=== PATIENT | female | born 1940 | race Caucasian/White ===

== ENCOUNTER 2018-01-15 20:14 | Inpatient (IN) ==
--- NOTE | 2018-01-15 21:10 | XR ---
EXAM DATE: 01/15/2018 9:05 PM EST AGE/SEX: 77 years / Female INDICATIONS: Syncopal episode. CLINICAL DATA: This is the patient's initial encounter. Patient reports that signs and symptoms have been present for 1 day and indicates a pain score of 0/10. MEDICAL/SURGICAL HISTORY: Carcinoma, lung. Hypertension. Diabetes. COPD. . Lung biopsy. COMPARISON: No prior exams available for comparison. FINDINGS: Mild volume loss and mild atelectasis seen on the right. No pleural effusion or pneumothorax on eithe r side. Heart size within normal limits. CONCLUSION: I don't have any pertinent priors. There is mild volume loss and mild atelectasis on the right. The v olume loss may be postoperative. Left lung is clear. Normal heart size. Electronically signed by: Manish Diaz MD 01/15/2018 9:09 PM EST
--- NOTE | 2018-01-15 21:16 | ED ---
HPI General Chief Complaint: Respiratory Symptoms Stated Complaint: Medical Time Seen by Provider: 01/15/18 20:26 Source: patient and EMS Mode of arrival: EMS Limitations: no limitations History of Present Illness 77 yo F arrives due to low O2 sat, evidently in the 80s today. Pt c/o chronic cough. No cp. No dyspnea on exertion or orthopnea to reports. Denies subjective fevers. Pt reports hx lung Ca and is currently undergoing RTX. No CTX. Oncologist is Dr Kelly. Pt reports COPD hx however does not require albuterol inhaler or nebs at home. Duration of hypoxia reportedly 1 day. Related Data Home Medications Medication Instructions Recorded Confirmed aripiprazole 2 mg PO DAILY 01/15/18 01/15/18 aspirin [Aspir-81] 81 mg PO DAILY 01/15/18 01/15/18 docusate sodium [Colace] 100 mg PO BID 01/15/18 01/15/18 escitalopram oxalate 15 mg PO DAILY 01/15/18 01/15/18 furosemide 20 mg PO BID 01/15/18 01/15/18 levothyroxine [Synthroid] 150 mcg PO DAILY 01/15/18 01/15/18 lorazepam 0.5 mg PO DAILY 01/15/18 01/15/18 magnesium oxide 400 mg PO DAILY 01/15/18 01/15/18 metformin 1,000 mg PO BID 01/15/18 01/15/18 oxybutynin chloride 5 mg PO DAILY 01/15/18 01/15/18 potassium chloride 10 meq PO DAILY 01/15/18 01/15/18 pregabalin 150 mg PO BID 01/15/18 01/15/18 ropinirole 1 mg PO HS 01/15/18 01/15/18 Allergies Allergy/AdvReac Type Severity Reaction Status Date / Time codeine Allergy Severe Unverified 10/06/16 22:46 Iodinated Contrast- Oral and Allergy Severe Swelling Unverified 10/06/16 22:46 IV Dye Review of Systems ROS: all other systems reviewed are negative [facility] Medical History Medical History Atherosclerosis (Acute) COPD (chronic obstructive pulmonary disease) (Acute) Diabetes (Acute) HTN (hypertension) (Acute) Hyperlipidemia (Acute) Hypothyroid (Acute) Lung cancer (Acute) Neuropathy (Acute) Social History Social History Substance History: No History of Abuse Smoking Status: Current every day smoker Tobacco Type: Cigarettes How Often Do You Have a Drink Containing Alcohol: Never Recent Travel in [facility] within the Last 8 Weeks: No Recent Out of Country Travel within the Last 8 Weeks: No Immunization History Tetanus Immunization: <5 Years Exam Narrative Exam Narrative: GENERAL: 77 yo F, WNWD, pleasant, speaking sentences, AOX3 SKIN: Focused skin assessment warm/dry. HEAD: Atraumatic. Normocephalic. EYES: Pupils equal and round. No scleral icterus. No injection or drainage. ENT: No nasal bleeding or discharge. Mucous membranes pink and moist. NECK: Trachea midline. No JVD. CARDIOVASCULAR: Regular rate and rhythm. No murmur appreciated. RESPIRATORY: Lungs clear. RR approx 18. GASTROINTESTINAL: Abdomen soft, non-tender, nondistended. Hepatic and splenic margins not palpable. MUSCULOSKELETAL: No obvious deformities. No clubbing. No cyanosis. No edema. NEUROLOGICAL: Awake and alert. No obvious cranial nerve deficits. Motor grossly within normal limits. Normal speech. PSYCHIATRIC: Appropriate mood and affect; insight and judgment normal. Course Initial Documented Vital Signs Pulse Rate 81 01/15/18 20:23 Blood Pressure 116/74 01/15/18 20:23 Pulse Oximetry 98 01/15/18 20:23 Last Documented Vital Signs Temperature 97.9 F 01/15/18 21:22 Pulse Rate 79 01/15/18 20:34 Respiratory Rate 20 01/15/18 20:34 Blood Pressure 116/74 01/15/18 20:34 Pulse Oximetry 97 01/15/18 21:23 Critical Care Time Critical Care Time: Yes Total Critical Care Time: 33 Attestation: Aggregate critical care time was 33 minutes. Time to perform other separately billable procedures was not included in the critical care time. My time did not include minutes spent treating any other patients simultaneously or on activities that did not directly contribute to the patient's treatment. The services I provided to this patient were to treat and/or prevent clinically significant deterioration that could result in: hypoxia, septic shock I provided critical care services requiring my management, as noted below: Chart data review, documentation time, medication orders and management, vital sign assessments/reviewing monitor data, ordering and reviewing lab tests, ordering and interpreting/reviewing x-rays and diagnostic studies, care of the patient and discussion of the patient with the admitting physicians. Medical Decision Making MDM Narrative Medical decision making narrative: Oxygenation here has been in the high 90s on [place]. ABG shows 7.34/42/22 pO2 of 84mmHg on [place]. WBC 13.8 w 87% neutrophils BUN 33 Cr 1.53 Tn < 0.02 BNP 80 CXR: interpreted as volume loss by Dr Diaz. Call placed to [facility] at 1124 with plan for admission. Blood cultures, Rocephin/azithromycin O2 sat drops to 89% on RA, stays in mid90s on NC d/w Dr Brown for [facility] Dr Eastman is away on vacation Medical Screen Exam Complete: Yes Emergency Medical Condition: Yes Lab Data Lab results reviewed: Yes I reviewed the patient's lab results. Result diagrams: 01/15/18 22:30 01/15/18 22:30 Lab Results 01/15/18 01/15/18 01/15/18 Range/Units 22:09 22:30 22:30 WBC 13.8 H (4.0-11.0) th/mm3 RBC 4.33 (4.00-5.30) mil/mm3 Hgb 11.1 L (11.6-15.3) gm/dL Hct 34.7 L (35.0-46.0) % MCV 80.1 (80.0-100.0) fL MCH 25.6 L (27.0-34.0) pg MCHC 32.0 (32.0-36.0) % RDW 19.4 H (11.6-17.2) % Plt Count 188 (150-450) th/mm3 MPV 8.1 (7.0-11.0) fL Neut % (Auto) 87.2 H (16.0-70.0) % Lymph % (Auto) 5.4 L (9.0-44.0) % [place] % (Auto) 7.0 (0.0-8.0) % Eos % (Auto) 0.2 (0.0-4.0) % Baso % (Auto) 0.2 (0.0-2.0) % Neut # (Auto) 12.0 H (1.8-7.7) th/mm3 Lymph # (Auto) 0.7 L (1.0-4.8) th/mm3 [place] # (Auto) 1.0 H (0.0-0.9) th/mm3 Eos # (Auto) 0.0 (0.0-0.4) th/mm3 Baso # (Auto) 0.0 (0.0-0.2) th/mm3 WBC Differential . Differential Comment Auto diff final Puncture Site Right radial Patient Temperature 98.6 O2 Saturation 93 (90-100) % ABG pH 7.35 L (7.380-7.420) ABG pCO2 42 (38-42) mmHg ABG pO2 84 (61-120) mmHg ABG HCO3 22 (22-26) mmol/L ABG O2 Content 14.4 (12.0-20.0) Vol % ABG Base Excess -2.4 L (-2-2) mmol/L ABG Methemoglobin 0.9 (0-2) % Calderon Test Present Hemoglobin 11.0 L (12.0-16.0) G/DL Carboxyhemoglobin 2.1 (0-4) % O2 Delivery Device Nasal cannula Liter Flow 2.00 L/M Critical Value No Sodium 143 (136-145) meq/L Potassium 4.0 (3.5-5.1) meq/L Chloride 109 H (98-107) meq/L Carbon Dioxide 25.3 (21.0-32.0) meq/L Anion Gap 9 (5-15) meq/L BUN 33 H (7-18) mg/dL Creatinine 1.53 H (0.50-1.00) mg/dL Estimated GFR 33 L (>89) mL/min Random Glucose 178 H (74-106) mg/dL Calcium 8.6 (8.5-10.1) mg/dL Total Bilirubin 0.4 (0.2-1.0) mg/dL AST 11 L (15-37) U/L ALT 13 (10-53) U/L Alkaline Phosphatase 69 (45-117) U/L Troponin I Less than 0.02 L (0.02-0.05) ng/mL B-Natriuretic Peptide (0-100) pg/mL Total Protein 7.2 (6.4-8.2) g/dL Albumin 3.3 L (3.4-5.0) g/dL 01/15/18 Range/Units 22:30 WBC (4.0-11.0) th/mm3 RBC (4.00-5.30) mil/mm3 Hgb (11.6-15.3) gm/dL Hct (35.0-46.0) % MCV (80.0-100.0) fL MCH (27.0-34.0) pg MCHC (32.0-36.0) % RDW (11.6-17.2) % Plt Count (150-450) th/mm3 MPV (7.0-11.0) fL Neut % (Auto) (16.0-70.0) % Lymph % (Auto) (9.0-44.0) % [place] % (Auto) (0.0-8.0) % Eos % (Auto) (0.0-4.0) % Baso % (Auto) (0.0-2.0) % Neut # (Auto) (1.8-7.7) th/mm3 Lymph # (Auto) (1.0-4.8) th/mm3 [place] # (Auto) (0.0-0.9) th/mm3 Eos # (Auto) (0.0-0.4) th/mm3 Baso # (Auto) (0.0-0.2) th/mm3 WBC Differential Differential Comment Puncture Site Patient Temperature O2 Saturation (90-100) % ABG pH (7.380-7.420) ABG pCO2 (38-42) mmHg ABG pO2 (61-120) mmHg ABG HCO3 (22-26) mmol/L ABG O2 Content (12.0-20.0) Vol % ABG Base Excess (-2-2) mmol/L ABG Methemoglobin (0-2) % Calderon Test Hemoglobin (12.0-16.0) G/DL Carboxyhemoglobin (0-4) % O2 Delivery Device Liter Flow L/M Critical Value Sodium (136-145) meq/L Potassium (3.5-5.1) meq/L Chloride (98-107) meq/L Carbon Dioxide (21.0-32.0) meq/L Anion Gap (5-15) meq/L BUN (7-18) mg/dL Creatinine (0.50-1.00) mg/dL Estimated GFR (>89) mL/min Random Glucose (74-106) mg/dL Calcium (8.5-10.1) mg/dL Total Bilirubin (0.2-1.0) mg/dL AST (15-37) U/L ALT (10-53) U/L Alkaline Phosphatase (45-117) U/L Troponin I (0.02-0.05) ng/mL B-Natriuretic Peptide 80 (0-100) pg/mL Total Protein (6.4-8.2) g/dL Albumin (3.4-5.0) g/dL Imaging Data Radiologist's impression: Chest X-Ray 01/15/18 20:34 CONCLUSION: I don't have any pertinent priors. There is mild volume loss and mild atelectasis on the right. The volume loss may be postoperative. Left lung is clear. Normal heart size. Discharge Plan Discharge Disposition Patient Disposition: 30 Still Patient Physicians Team ED Provider: Saul Goncalves Primary Care Provider: Alessio Eastman Rxs /Orders / Referrals /Forms Prescriptions: No Action potassium chloride 10 mEq Tablet Extended Release 10 meq PO DAILY RF: 0 aspirin [Aspir-81] 81 mg Tablet,Delayed Release (Dr/Ec) 81 mg PO DAILY RF: 0 lorazepam 0.5 mg Tablet 0.5 mg PO DAILY RF: 0 oxybutynin chloride 5 mg Tablet Extended Release 24hr 5 mg PO DAILY RF: 0 aripiprazole 2 mg Tablet 2 mg PO DAILY RF: 0 ropinirole 1 mg Tablet 1 mg PO HS RF: 0 metformin 1,000 mg Tablet 1,000 mg PO BID RF: 0 levothyroxine [Synthroid] 150 mcg Tablet 150 mcg PO DAILY RF: 0 docusate sodium [Colace] 100 mg Capsule 100 mg PO BID RF: 0 furosemide 20 mg Tablet 20 mg PO BID RF: 0 escitalopram oxalate 10 mg Tablet 15 mg PO DAILY RF: 0 pregabalin 150 mg Capsule 150 mg PO BID RF: 0 magnesium oxide 400 mg magnesium Tablet 400 mg PO DAILY RF: 0 Status ED Status: In Room
[2018-01-15 22:18] LABS: ABG Base Excess -2.4 mmol/L (-2-2); ABG PCO2 42 mmHg (38-42); ABG PO2 84 mmHg (61-120)
[2018-01-15 22:40] LABS: Baso % (Auto) 0.2 % (0.0-2.0); Eos % (Auto) 0.2 % (0.0-4.0); Hematocrit 34.7 % (35.0-46.0); Hemoglobin 11.1 gm/dL (11.6-15.3); Lymph # (Auto) 0.7 th/mm3 (1.0-4.8); Lymph % (Auto) 5.4 % (9.0-44.0); Mean Corpuscular Hemoglobin 25.6 pg (27.0-34.0); Mean Corpuscular Volume 80.1 fL (80.0-100.0); Mean Platelet Volume 8.1 fL (7.0-11.0); Neut % (Auto) 87.2 % (16.0-70.0); Platelet Count 188 th/mm3 (150-450); Red Blood Count 4.33 mil/mm3 (4.00-5.30); Red Cell Distribution Width 19.4 % (11.6-17.2); White Blood Count 13.8 th/mm3 (4.0-11.0)
[2018-01-15 22:54] LABS: Albumin 3.3 g/dL (3.4-5.0); Anion Gap 9 meq/L (5-15); Aspartate Aminotransferase 11 U/L (15-37); Blood Urea Nitrogen 33 mg/dL (7-18); Calcium 8.6 mg/dL (8.5-10.1); Carbon Dioxide 25.3 meq/L (21.0-32.0); Chloride 109 meq/L (98-107); Glomerular Filtration Rate 33 mL/min (>89); Glucose,Random 178 mg/dL (74-106); Sodium 143 meq/L (136-145)
[2018-01-15 22:55] LABS: Alanine Aminotransferase 13 U/L (10-53)
[2018-01-15 22:59] LABS: Alkaline Phosphatase 69 U/L (45-117); Total Protein 7.2 g/dL (6.4-8.2)
[2018-01-15] MEDS ORDERED: Azithromycin Inj 500 MG in Sodium Chlor 0.9% Inj 250 ML IV.SIG ONE (23:25)
[2018-01-15] MEDS ORDERED: Dextrose 50% in Water 50 ML Vial IV.PUSH PRN (23:49)
[2018-01-15] MEDS ORDERED: Bisacodyl 10 MG Supp RECTAL PRN (23:50)
[2018-01-15] MEDS ORDERED: Acetaminophen 325 MG Tablet PO PRN (23:50)
--- NOTE | 2018-01-15 23:52 | P.HPIM ---
History of Present Illness Primary Care Physician: Alessio Eastman DO History of Present Illness: This is a 77-year-old DNR female with a PMH of HTN, Hyperlipidemia, Hypothyroidism, COPD, DM and Lung CA who was brought to the ER from SNF for SOB and hypoxia w/ O2 sat 80's on RA. Pt states she has been undergoing radiation therapy, notes worsening SOB and productive cough w/ green-colored sputum x2 days. Denies fever, chills or chest pain. On arrival, BP 116/74, HR 81, O2 sat 98% on RA, Afebrile. WBC 13.8. Creatinine 1.53. Troponin negative. CXR with mild volume loss and atelectasis on the right possibly postoperative. S/p Rocephin/Zithro in ER. - Diagnosis (1) Hypoxia (2) COPD (chronic obstructive pulmonary disease) (3) Lung cancer (4) Tobacco abuse (5) DNR (do not resuscitate) (6) DM (diabetes mellitus) Inpatient Certification: I certify that the inpatient services were ordered in accordance with Medicare regulations governing the order. This includes certification that hospital inpatient services are reasonable and necessary and in the case of services not specified as inpatient-only under 42 CFR 419.22(n), that they are appropriately provided as inpatient services in accordance to with the 2-midnight benchmark under 43 CFR 412.3(e) Estimated Total Length of Stay (Days): 2 Plans for Post Hospital Care: Not yet determined Review of Systems PAST FAMILY HISTORY: Reviewed. No h/o DM or CAD All other systems reviewed negative except as stated [facility] - History History Provided By: Patient - Medical History Medical History: Medical History (Last Updated 01/15/18 @ 20:30 by Sultana Hawkins RN) Atherosclerosis COPD (chronic obstructive pulmonary disease) Diabetes HTN (hypertension) Hyperlipidemia Hypothyroid Lung cancer Neuropathy - Tobacco History Tobacco Use In Past 30 Days: Yes Smoking Status: Current every day smoker Tobacco Type: Cigarettes - Alcohol History How Often Do You Have a Drink Containing Alcohol: Never - Substance Use History Substance History: No History of Abuse - Travel History Recent Travel in the [place] Within the Last 8 Weeks: No Recent Travel Out of the Country Within the Last 8 Weeks: No - Immunization History Tetanus Immunization: <5 Years Medications and Allergies Active Medications: Active Medications Acetaminophen (Tylenol) 650 mg PO Q4H PRN PRN Reason: Temp > 100.4 Al Hydroxide/Mg Hydroxide (Milk Of Magnesia Liq) 30 ml PO Q12H PRN PRN Reason: Mild Constipation Albuterol (Duoneb Neb (Prn)) 1 ampul NEB Q4HR NEB PRN PRN Reason: SOB/WHEEZING Aripiprazole (Abilify) 2 mg PO DAILY [facility] Aspirin (Ecotrin) 81 mg PO DAILY [facility] Bisacodyl (Dulcolax Supp) 10 mg RECTAL DAILY PRN PRN Reason: SEVERE CONSITIPATION Dextrose (D50w Vial) 50 ml IV.PUSH UNSCH PRN PRN Reason: PER HYPOGLYCEMIA PROTOCOL Escitalopram Oxalate (Lexapro) 15 mg PO DAILY [facility] Glucagon (Glucagon Inj) 1 mg OTHER PRN PRN PRN Reason: for Hypoglycemia Protocol Heparin Sodium (Porcine) (Heparin Inj) 5,000 units SQ Q12H [facility] Azithromycin 500 mg/ Sodium (Chloride) 250 mls @ 250 mls/hr IV.SIG ONCE ONE Stop: 01/16/18 00:24 Ceftriaxone Sodium 1,000 mg/ (Sodium Chloride) 100 mls @ 200 mls/hr IV.SIG ONCE ONE Stop: 01/15/18 23:54 Azithromycin 500 mg/ Sodium (Chloride) 250 mls @ 250 mls/hr IV.SIG Q24H [facility] Piperacillin/Tazobactam/Dextrose (Zosyn 4.5 Gm Premix) 4.5 gm in 100 mls @ 200 mls/hr IV.SIG Q6H [facility] Insulin Aspart (Novolog Insulin Correctional Sugar Inj) 0 unit SQ ACHS [facility]; Protocol Lactulose (Lactulose Liq) 30 ml PO DAILY PRN PRN Reason: SEVERE CONSITIPATION Lorazepam (Ativan) 0.5 mg PO DAILY [facility] Non-Formulary Medication (Magnesium Oxide [Magnesium Oxide]) 400 mg PO DAILY [facility] Non-Formulary Medication (Pregabalin [Pregabalin]) 150 mg PO BID [facility] Ondansetron HCl (Zofran Inj) 4 mg IV.PUSH Q6H PRN PRN Reason: NAUSEA OR VOMITING Ropinirole HCl (Requip) 1 mg PO HS [facility] Senna/Docusate Sodium (Melonie-Colace) 1 tab PO BID [facility] Sennosides (Senokot) 17.2 mg PO Q12H PRN PRN Reason: Moderate Constipation Allergies Allergy/AdvReac Type Severity Reaction Status Date / Time codeine Allergy Severe Unverified 10/06/16 22:46 Iodinated Contrast- Oral and Allergy Severe Swelling Unverified 10/06/16 22:46 IV Dye Home Medications Medication Instructions Recorded Confirmed Type aripiprazole 2 mg PO DAILY 01/15/18 01/15/18 History aspirin [Aspir-81] 81 mg PO DAILY 01/15/18 01/15/18 History docusate sodium [Colace] 100 mg PO BID 01/15/18 01/15/18 History escitalopram oxalate 15 mg PO DAILY 01/15/18 01/15/18 History furosemide 20 mg PO BID 01/15/18 01/15/18 History levothyroxine [Synthroid] 150 mcg PO DAILY 01/15/18 01/15/18 History lorazepam 0.5 mg PO DAILY 01/15/18 01/15/18 History magnesium oxide 400 mg PO DAILY 01/15/18 01/15/18 History metformin 1,000 mg PO BID 01/15/18 01/15/18 History oxybutynin chloride 5 mg PO DAILY 01/15/18 01/15/18 History potassium chloride 10 meq PO DAILY 01/15/18 01/15/18 History pregabalin 150 mg PO BID 01/15/18 01/15/18 History ropinirole 1 mg PO HS 01/15/18 01/15/18 History Exam Vital signs: Vital Signs 01/15/18 20:23 01/15/18 20:34 01/15/18 21:22 Temperature 97.9 F Pulse Rate 81 79 Respiratory Rate 20 Blood Pressure 116/74 116/74 Pulse Oximetry 98 98 01/15/18 21:23 Temperature Pulse Rate Respiratory Rate Blood Pressure Pulse Oximetry 97 Intake & Output 01/15/18 01/15/18 01/16/18 06:59 18:59 06:59 Weight 108.409 kg Narrative: PE: GENERAL: Elderly white female in no acute distress. SKIN: Focused skin assessment warm and dry. HEENT: PERRLA, EOMI. No scleral icterus or conjunctival pallor. No lid lag or facial droop. CARDIOVASCULAR: Regular rate and rhythm. No obvious murmurs to auscultation. No chest tenderness to palpation. RESPIRATORY: No obvious rhonchi, occasional wheezing. Breath sounds equal bilaterally. GASTROINTESTINAL: Abdomen soft, non-tender, nondistended. BS normal. MUSCULOSKELETAL: Extremities without clubbing, cyanosis, or edema. No obvious deformities. NEUROLOGICAL: Awake, alert and oriented x4. No focal neurologic deficits. Moving both upper and lower extremities spontaneously. PSYCHIATRIC: Appropriate mood and affect. Insight and judgment normal. Results - Labs CBC & Chem 7: 01/15/18 22:30 01/15/18 22:30 Labs: Short CBC 01/15/18 Range/Units 22:30 WBC 13.8 H (4.0-11.0) th/mm3 Hgb 11.1 L (11.6-15.3) gm/dL Hct 34.7 L (35.0-46.0) % Plt Count 188 (150-450) th/mm3 BMP 01/15/18 22:30 Sodium 143 Potassium 4.0 Chloride 109 H Carbon Dioxide 25.3 BUN 33 H Creatinine 1.53 H Calcium 8.6 Cardiac Enzymes 01/15/18 Range/Units 22:30 Troponin I Less than 0.02 L (0.02-0.05) ng/mL Liver Function 01/15/18 Range/Units 22:30 Total Bilirubin 0.4 (0.2-1.0) mg/dL AST 11 L (15-37) U/L ALT 13 (10-53) U/L Alkaline Phosphatase 69 (45-117) U/L Albumin 3.3 L (3.4-5.0) g/dL - Imaging Impressions Chest X-Ray 01/15/18 20:34 CONCLUSION: I don't have any pertinent priors. There is mild volume loss and mild atelectasis on the right. The volume loss may be postoperative. Left lung is clear. Normal heart size. Caprini VTE Risk Assessment Caprini VTE Risk Assessment: No/Low Risk (score <= 1) Caprini Risk Assessment Model: Point Value = 1 Point Value = 2 Point Value = 3 Point Value = 5 Age 41-60 Minor surgery BMI > 25 kg/m2 Swollen legs Varicose veins or History of unexplained or recurrent spontaneous Oral contraceptives or hormone replacement Sepsis (< 1 month) Serious lung disease, including pneumonia (< 1 month) Abnormal pulmonary function Acute myocardial infarction Congestive heart failure (< 1 month) History of inflammatory bowel disease Medical patient at bed rest Age 61-74 Arthroscopic surgery Major open surgery (> 45 min) Laparoscopic surgery (> 45 min) Malignancy Confined to bed (> 72 hours) Immobilizing plaster cast Central venous access Age >= 75 History of VTE Family history of VTE Factor V Leiden Prothrombin [id number] Lupus anticoagulant Anticardiolipin antibodies Elevated serum homocysteine Heparin-induced thrombocytopenia Other congenital or acquired thrombophilia Stroke (< 1 month) Elective arthroplasty Hip, pelvis, or leg fracture Acute spinal cord injury (< 1 month) Prophylaxis Regimen: Total Risk Factor Score Risk Level Prophylaxis Regimen 0-1 Low Early ambulation 2 Moderate Order ONE of the following: *Sequential Compression Device (SCD) *Heparin 5000 units SQ BID 3-4 Higher Order ONE of the following medications: *Heparin 5000 units SQ TID *Enoxaparin/Lovenox 40 mg SQ daily (WT < 150 kg, CrCl > 30 mL/min) *Enoxaparin/Lovenox 30 mg SQ daily (WT < 150 kg, CrCl > 10-29 mL/min) *Enoxaparin/Lovenox 30 mg SQ BID (WT < 150 kg, CrCl > 30 mL/min) AND/OR *Sequential Compression Device (SCD) 5 or more Highest Order ONE of the following medications: *Heparin 5000 units SQ TID (Preferred with Epidurals) *Enoxaparin/Lovenox 40 mg SQ daily (WT < 150 kg, CrCl > 30 mL/min) *Enoxaparin/Lovenox 30 mg SQ daily (WT < 150 kg, CrCl > 10-29 mL/min) *Enoxaparin/Lovenox 30 mg SQ BID (WT < 150 kg, CrCl > 30 mL/min) AND *Sequential Compression Device (SCD) Assessment and Plan - Assessment (1) Hypoxia Code(s): R09.02 - Hypoxemia Status: Acute (2) COPD (chronic obstructive pulmonary disease) Code(s): J44.9 - Chronic obstructive pulmonary disease, unspecified Status: Acute (3) Lung cancer Code(s): C34.90 - Malignant neoplasm of unspecified part of unspecified bronchus or lung Status: Acute (4) Tobacco abuse Code(s): Z72.0 - Tobacco use Status: Acute (5) DNR (do not resuscitate) Code(s): Z66 - Do not resuscitate Status: Acute (6) DM (diabetes mellitus) Code(s): E11.9 - Type 2 diabetes mellitus without complications Status: Acute - Plan A/P: 1. COPD: Chronic Respiratory Failure w/ Acute Exacerbation. Moderate. Solu- Medrol, DuoNeb, Symbicort, Mucinex. 2. PNA: CXR w/ some volume loss, images reviewed, in light of leukocytosis, productive cough and immunocompromised state, will continue w/ treatment for PNA. 3. Hypoxia: O2 sat 80's on RA per EMS, improved w/ oxygen however desaturates on RA. 4. DM: Sliding scale w/ Accu-cheks. Hold Metformin for now. 5. Tobacco Abuse: Pt counselled. Dorene prn 6. DNR: Code Status confirmed directly with patient, community DNR in chart. 7. DVT Prophylaxis: Heparin sq 8. Social work for d/c planning as needed. 9. Case discussed w/ ER physician at length, labs/records/imaging reviewed by me.
[2018-01-16] MEDS: MethylPREDNISolone Sod Succinate Inj 40 MG/ML Vial IV.PUSH SCH ×4 (02:25→20:18)
[2018-01-16] MEDS ORDERED: Piperacil/Tazo 4.5 GM Premix 4.5 GM/100 ML BAG IV.SIG SCH (06:00)
[2018-01-16 06:14] LABS: Baso % (Auto) 0.2 % (0.0-2.0); Eos % (Auto) 0.2 % (0.0-4.0); Hematocrit 32.6 % (35.0-46.0); Hemoglobin 10.8 gm/dL (11.6-15.3); Lymph # (Auto) 0.3 th/mm3 (1.0-4.8); Lymph % (Auto) 2.6 % (9.0-44.0); Mean Corpuscular HGB Conc 33.2 % (32.0-36.0); Mean Corpuscular Hemoglobin 26.8 pg (27.0-34.0); Mean Corpuscular Volume 80.7 fL (80.0-100.0); Mean Platelet Volume 8.8 fL (7.0-11.0); Mono # (Auto) 0.2 th/mm3 (0.0-0.9); Mono % (Auto) 2.1 % (0.0-8.0); Neut # (Auto) 10.1 th/mm3 (1.8-7.7); Neut % (Auto) 94.9 % (16.0-70.0); Platelet Count 172 th/mm3 (150-450); Red Blood Count 4.04 mil/mm3 (4.00-5.30); Red Cell Distribution Width 19.7 % (11.6-17.2); White Blood Count 10.6 th/mm3 (4.0-11.0)
[2018-01-16 06:34] LABS: Albumin 3.1 g/dL (3.4-5.0); Anion Gap 9 meq/L (5-15); Aspartate Aminotransferase 14 U/L (15-37); Blood Urea Nitrogen 31 mg/dL (7-18); Calcium 8.4 mg/dL (8.5-10.1); Carbon Dioxide 24.5 meq/L (21.0-32.0); Chloride 109 meq/L (98-107); Glomerular Filtration Rate 45 mL/min (>89); Glucose,Random 199 mg/dL (74-106); Potassium 4.2 meq/L (3.5-5.1); Sodium 142 meq/L (136-145)
[2018-01-16 06:35] LABS: Alanine Aminotransferase 12 U/L (10-53)
[2018-01-16 06:37] LABS: Alkaline Phosphatase 67 U/L (45-117); Total Protein 6.8 g/dL (6.4-8.2)
[2018-01-16] MEDS: Insulin NovoLOG Aspart Correctional Sugar Inj SQ SCH ×4 (07:54→20:49)
[2018-01-16] MEDS: Magnesium Oxide 400 MG Tablet PO SCH (08:05)
[2018-01-16] MEDS: Escitalopram 10 MG Tablet PO SCH (08:05)
[2018-01-16] MEDS: guaiFENesin 600 MG ER Tablet PO SCH ×2 (08:05→20:17)
[2018-01-16] MEDS: ARIPiprazole 2 MG Tablet PO SCH (08:05)
[2018-01-16] MEDS: LORazepam 0.5 MG Tablet PO SCH (08:05)
[2018-01-16] MEDS: Senna/Docusate Sodium 8.6/50 MG Tablet PO SCH ×2 (08:05→20:17)
[2018-01-16] MEDS: Pregabalin 75 MG Capsule PO SCH ×2 (08:05→20:17)
[2018-01-16] MEDS: Heparin - SQ 10,000 UNITS/ML Vial SQ SCH ×2 (08:05→20:17)
[2018-01-16] MEDS: Budesonide-Formoterol 160/4.5 MCG 6 GM Inhaler INH SCH ×2 (10:51→20:49)
[2018-01-16] MEDS: Piperacil/Tazo 3.375 GM Premix 50 ML IV.SIG SCH ×2 (12:35→17:31)
--- NOTE | 2018-01-16 13:54 | ECG ---
Date Performed: 01/15/2018 Time Performed: 21:33:35 PTAGE: 77 years EKG: Sinus rhythm LOW QRS VOLTAGE IN PRECORDIAL LEADS BORDERLINE ECG Since the PREVIOUS TRACING , no significant change noted PREVIOUS TRACIN07/15/2015 08.13 DOCTOR: Chris Morin Interpretating Date/Time 01/16/2018 13:53:03
--- NOTE | 2018-01-16 14:37 | P.PNIM ---
Subjective Interval history: Follow up shortness of breath, productive cough Patient resting in bed with eyes closed. Opens eyes to verbal stimuli. She states she is ready to go home. Patient with Tmax of 100.6 F overnight. She currently remains on supplemental O2 with sats > 92%. Denies chest pain, shortness of breath at rest, cough, lower extremity pain/edema or chills. Physical Exam Vital signs: Last Vital Signs Temp 98.9 F 01/16/18 12:00 Pulse 75 01/16/18 12:00 Resp 16 01/16/18 12:00 BP 107/53 L 01/16/18 12:00 Pulse Ox 94 L 01/16/18 12:00 Intake & Output 01/14/18 01/15/18 01/16/18 01/17/18 06:59 06:59 06:59 06:59 Intake Total 450 / 450 50 / 50 Balance 450 / 450 50 / 50 Weight 100.6 kg Narrative: GENERAL: Elderly white female in no acute distress. SKIN: Focused skin assessment warm and dry. HEENT: PERRLA, EOMI. No scleral icterus or conjunctival pallor. No lid lag or facial droop. CARDIOVASCULAR: Regular rate and rhythm. No obvious murmurs to auscultation. No chest tenderness to palpation. RESPIRATORY: No obvious rhonchi, occasional wheezing. Breath sounds equal bilaterally. GASTROINTESTINAL: Abdomen soft, non-tender, nondistended. BS normal. MUSCULOSKELETAL: Extremities without clubbing, cyanosis, or edema. No obvious deformities. NEUROLOGICAL: Awake, alert and oriented x4. No focal neurologic deficits. Moving both upper and lower extremities spontaneously. PSYCHIATRIC: Appropriate mood and affect. Insight and judgment normal. Results Labs CBC & Chem 7: 01/16/18 05:29 01/16/18 05:29 Imaging Imaging: Impressions Chest X-Ray 01/15/18 20:34 CONCLUSION: I don't have any pertinent priors. There is mild volume loss and mild atelectasis on the right. The volume loss may be postoperative. Left lung is clear. Normal heart size. Assessment and Plan Plan Patient is a 77 y/o female with a past medical history significant for hypertension, dyslipidemia, hypothyroidism, COPD, DM and lung cancer. She presented to the ED from her shelter care facility [facility] for shortness of breath and hypoxia with O2 sats in the 80's on room air. COPD: chronic cespiratory failure w/ acute exacerbation, moderate - evaluated 01/16/18 -continue Solu-Medrol, DuoNeb, Symbicort, Mucinex -supplemental O2 PRN PNA - evaluated 01/16/18, improving -CXR w/ some volume loss, images reviewed, in light of leukocytosis, productive cough and immunocompromised state, will continue w/ treatment for PNA. -continue Azithromycin & zosyn -blood cultures pending Hypoxia - evaluated 01/16/18, stable on supplemental O2 -O2 sat 80's on RA per EMS -sats improved w/ oxygen however desaturates on RA DM - evaluated 01/16/18, uncontrolled -continue sliding scale w/ Accu-cheks ac/hs -hold Metformin for now Tobacco Abuse: Pt counselled. -NicoDerm prn MDM: self Code: DNR, community DNR in chart GI ppx: PO intake DVT Prophylaxis: Heparin sq Dispo: patient to return to shelter care facility [facility] once medically optimized. Progress Note: Quality VTE Deep Vein Thrombosis/Pulmonary Embolism Present on Admission: No
[2018-01-16] MEDS: Azithromycin Inj 500 MG in Sodium Chlor 0.9% Inj 250 ML IV.SIG SCH (23:38)
[2018-01-17] MEDS: Piperacil/Tazo 3.375 GM Premix 50 ML IV.SIG SCH ×4 (00:48→17:35)
[2018-01-17] MEDS: MethylPREDNISolone Sod Succinate Inj 40 MG/ML Vial IV.PUSH SCH ×3 (02:37→17:33)
[2018-01-17 05:06] LABS: Baso % (Auto) 0.3 % (0.0-2.0); Hematocrit 32.6 % (35.0-46.0); Hemoglobin 10.5 gm/dL (11.6-15.3); Lymph # (Auto) 0.4 th/mm3 (1.0-4.8); Lymph % (Auto) 7.6 % (9.0-44.0); Mean Corpuscular HGB Conc 32.2 % (32.0-36.0); Mean Corpuscular Hemoglobin 26.2 pg (27.0-34.0); Mean Corpuscular Volume 81.2 fL (80.0-100.0); Mean Platelet Volume 8.8 fL (7.0-11.0); Mono # (Auto) 0.2 th/mm3 (0.0-0.9); Mono % (Auto) 3.5 % (0.0-8.0); Neut # (Auto) 4.7 th/mm3 (1.8-7.7); Neut % (Auto) 88.6 % (16.0-70.0); Platelet Count 176 th/mm3 (150-450); Red Blood Count 4.02 mil/mm3 (4.00-5.30); White Blood Count 5.3 th/mm3 (4.0-11.0)
[2018-01-17 05:33] LABS: Carbon Dioxide 25.6 meq/L (21.0-32.0); Potassium 4.1 meq/L (3.5-5.1)
[2018-01-17] MEDS: Senna/Docusate Sodium 8.6/50 MG Tablet PO SCH ×2 (09:56→20:52)
[2018-01-17] MEDS: ARIPiprazole 2 MG Tablet PO SCH (09:56)
[2018-01-17] MEDS: Escitalopram 10 MG Tablet PO SCH (09:56)
[2018-01-17] MEDS: Heparin - SQ 10,000 UNITS/ML Vial SQ SCH ×2 (09:57→20:52)
[2018-01-17] MEDS: guaiFENesin 600 MG ER Tablet PO SCH ×2 (09:57→20:52)
[2018-01-17] MEDS: Pregabalin 75 MG Capsule PO SCH ×2 (09:57→20:52)
[2018-01-17] MEDS: LORazepam 0.5 MG Tablet PO SCH (09:57)
[2018-01-17] MEDS: Budesonide-Formoterol 160/4.5 MCG 6 GM Inhaler INH SCH ×2 (10:05→20:54)
[2018-01-17] MEDS: Magnesium Oxide 400 MG Tablet PO SCH (10:05)
[2018-01-17] MEDS: Insulin NovoLOG Aspart Correctional Sugar Inj SQ SCH ×4 (10:10→21:36)
--- NOTE | 2018-01-17 16:26 | P.PN ---
Subjective Interval history: The patient is in bed she appears in not acute distress at this time. Says she is coughing greenish sputum however she is improved. As she is saturating well on room air at this time. Says she has no chest pain or shortness of breath. No wheezing. Has constipation. No nausea or vomiting. No fever or chills. Says she wants to go back to the snf as she feels improved. Physical Exam Vital signs: Vital Signs 01/16/18 17:25 01/16/18 20:00 01/16/18 20:18 Temperature 97.6 F Pulse Rate 65 Respiratory Rate 17 Blood Pressure 139/61 Pulse Oximetry 94 L 94 L 94 L 01/17/18 00:00 01/17/18 04:00 01/17/18 08:00 Temperature 97.9 F 97.8 F 98 F Pulse Rate 67 65 65 Respiratory Rate 16 17 19 Blood Pressure 114/56 L 115/56 L 124/58 L Pulse Oximetry 95 94 L 95 01/17/18 09:00 01/17/18 10:47 01/17/18 11:40 Temperature 98.3 F Pulse Rate 65 57 L Respiratory Rate 19 Blood Pressure 134/65 Pulse Oximetry 95 93 L Intake & Output 01/16/18 01/17/18 01/17/18 18:59 06:59 18:59 Intake Total 100 / 100 350 / 350 Balance 100 / 100 350 / 350 Weight 101.1 kg Intake: IV 100 / 100 350 / 350 Azithromycin Inj 500 MG In NS 250 / 250 Inj 250 ML @ 250 mls/hr IV.SIG Q24H SAMMIE Rx#:[id number] Zosyn 3.375 GM Premix 50 ML @ 100 / 100 100 / 100 100 mls/hr IV.SIG Q6H SAMMIE Rx#: [id number] Other: # Incontinent Voids 3 2 Date of Last Bowel Movement 01/13/18 01/13/18 01/15/18 Narrative: GENERAL: Very pleasant 77-year-old female in no acute distress. CARDIOVASCULAR: Regular rate and rhythm. No obvious murmurs to auscultation. No chest tenderness to palpation. RESPIRATORY: No obvious rhonchi. Scattered wheezing. Breath sounds equal bilaterally. GASTROINTESTINAL: Abdomen soft, non-tender, nondistended. BS normal. MUSCULOSKELETAL: Extremities without clubbing, cyanosis, or edema. No obvious deformities. NEUROLOGICAL: Awake, alert and oriented x4. No focal neurologic deficits. Moving both upper and lower extremities spontaneously. PSYCHIATRIC: Appropriate mood and affect. Insight and judgment normal. Results - Labs CBC & Chem 7: 01/17/18 04:21 01/17/18 04:21 Laboratory Results - last 24 hr 01/16/18 01/16/18 01/17/18 17:32 20:16 04:21 WBC 5.3 RBC 4.02 Hgb 10.5 L Hct 32.6 L MCV 81.2 MCH 26.2 L MCHC 32.2 RDW 19.0 H Plt Count 176 MPV 8.8 Neut % (Auto) 88.6 H Lymph % (Auto) 7.6 L [place] % (Auto) 3.5 Eos % (Auto) 0.0 Baso % (Auto) 0.3 Neut # (Auto) 4.7 Lymph # (Auto) 0.4 L [place] # (Auto) 0.2 Eos # (Auto) 0.0 Baso # (Auto) 0.0 WBC Differential . Differential Comment Auto diff final Sodium Potassium Chloride Carbon Dioxide Anion Gap BUN Creatinine Estimated GFR POC Glucose 238 H 336 H Random Glucose Calcium 01/17/18 01/17/18 01/17/18 04:21 10:08 12:42 WBC RBC Hgb Hct MCV MCH MCHC RDW Plt Count MPV Neut % (Auto) Lymph % (Auto) [place] % (Auto) Eos % (Auto) Baso % (Auto) Neut # (Auto) Lymph # (Auto) [place] # (Auto) Eos # (Auto) Baso # (Auto) WBC Differential Differential Comment Sodium 145 Potassium 4.1 Chloride 112 H Carbon Dioxide 25.6 Anion Gap 7 BUN 25 H Creatinine 1.02 H Estimated GFR 53 L POC Glucose 326 H 348 H Random Glucose 232 H Calcium 9.0 Microbiology 01/15/18 23:59 Blood - Peripheral Aerobic Blood Culture - Preliminary No growth in 1 day 01/15/18 23:59 Blood - Peripheral Anaerobic Blood Culture - Preliminary No growth in 1 day 01/15/18 23:50 Blood - Peripheral Aerobic Blood Culture - Preliminary No growth in 1 day 01/15/18 23:50 Blood - Peripheral Anaerobic Blood Culture - Preliminary No growth in 1 day Assessment and Plan - Plan Patient is a very pleasant 77 y/o female with a past medical history significant for hypertension, dyslipidemia, hypothyroidism, COPD, DM and lung cancer. She presented to the ED from her [facility] for shortness of breath and hypoxia with O2 sats in the 80's on room air. COPD: chronic respiratory failure with acute exacerbation, moderate. Improving -continue Solu-Medrol, DuoNeb, Symbicort, Mucinex. Taper steroids as tolerated -supplemental O2 PRN PNA - evaluated 01/16/18, improving -CXR w/ some volume loss, images reviewed, in light of leukocytosis, productive cough and immunocompromised state, will continue w/ treatment for PNA. -continue Azithromycin & zosyn -blood cultures pending, negative to date Hypoxia - evaluated 01/16/18, stable on supplemental O2 -O2 sat 80's on RA per EMS -sats improved with oxygen -Oxygen supplement as needed by nasal cannula to keep oxygen saturation more than 92% DM - evaluated 01/16/18, uncontrolled -continue sliding scale w/ Accu-cheks ac/hs -hold Metformin for now Tobacco Abuse: Pt counselled. -NicoDerm prn Constipation: Bowel regimen as needed MDM: self Code: DNR, community DNR in chart GI ppx: PO intake DVT Prophylaxis: Heparin sq Dispo: patient to return to [facility] care [facility] once medically optimized.
--- NOTE | 2018-01-17 16:27 | P.DS ---
Date of admission: 01/15/18 23:47 Primary care physician: Alessio Eastman DO Brief History from admission: This is a 77-year-old DNR female with a PMH of HTN, Hyperlipidemia, Hypothyroidism, COPD, DM and Lung CA who was brought to the ER from SNF for SOB and hypoxia w/ O2 sat 80's on RA. Pt states she has been undergoing radiation therapy, notes worsening SOB and productive cough w/ green-colored sputum x2 days. Denies fever, chills or chest pain. On arrival, BP 116/74, HR 81, O2 sat 98% on RA, Afebrile. WBC 13.8. Creatinine 1.53. Troponin negative. CXR with mild volume loss and atelectasis on the right possibly postoperative. S/p Rocephin/Zithro in ER. DS: Medications - Discharge Medications Prescriptions: budesonide-formoterol [Symbicort] 2 puff INH BID 30 Days #30 g cefuroxime axetil 500 mg PO Q12H #14 tab guaifenesin [Mucinex] 600 mg PO BID #4 tab ipratropium-albuterol 1 amp NEB Q4HR NEB PRN 30 Days ml PRN Reason: SOB/WHEEZING lorazepam 0.5 mg PO DAILY #2 tab DS: Summary Hospital Course: Patient is a very pleasant 77 y/o female with a past medical history significant for hypertension, dyslipidemia, hypothyroidism, COPD, DM and lung cancer. She presented to the ED from her [facility] facility [facility] for shortness of breath and hypoxia with O2 sats in the 80's on room air. COPD: chronic respiratory failure with acute exacerbation, moderate. Improving -continue Solu-Medrol, DuoNeb, Symbicort, Mucinex. Taper steroids as tolerated -supplemental O2 PRN PNA - evaluated 01/16/18, improving -CXR w/ some volume loss, images reviewed, in light of leukocytosis, productive cough and immunocompromised state, will continue w/ treatment for PNA. -continue Azithromycin & zosyn, switch to PO abx -blood cultures pending, negative to date Hypoxia - evaluated 01/16/18, stable on supplemental O2 -O2 sat 80's on RA per EMS -sats improved with oxygen -Oxygen supplement as needed by nasal cannula to keep oxygen saturation more than 92% DM - evaluated 01/16/18, uncontrolled -continue sliding scale w/ Accu-cheks ac/hs -hold Metformin for now Tobacco Abuse: Pt counselled. -NicoDerm prn Constipation: Bowel regimen as needed MDM: self Code: DNR, community DNR in chart GI ppx: PO intake DVT Prophylaxis: Heparin sq Improved, DC in stable condition back to [facility]. - Time Spent with Patient Total time spent providing and/or coordinating discharge services: Greater than 30 minutes - Quality: VTE Deep Vein Thrombosis/Pulmonary Embolism Present on Admission: No Exam Vital signs: Vital Signs 01/16/18 17:25 01/16/18 20:00 01/16/18 20:18 Temperature 97.6 F Pulse Rate 65 Respiratory Rate 17 Blood Pressure 139/61 Pulse Oximetry 94 L 94 L 94 L 01/17/18 00:00 01/17/18 04:00 01/17/18 08:00 Temperature 97.9 F 97.8 F 98 F Pulse Rate 67 65 65 Respiratory Rate 16 17 19 Blood Pressure 114/56 L 115/56 L 124/58 L Pulse Oximetry 95 94 L 95 01/17/18 09:00 01/17/18 10:47 01/17/18 11:40 Temperature 98.3 F Pulse Rate 65 57 L Respiratory Rate 19 Blood Pressure 134/65 Pulse Oximetry 95 93 L Intake & Output 01/16/18 01/17/18 01/17/18 18:59 06:59 18:59 Intake Total 100 / 100 350 / 350 Balance 100 / 100 350 / 350 Weight 101.1 kg Intake: IV 100 / 100 350 / 350 Azithromycin Inj 500 MG In NS 250 / 250 Inj 250 ML @ 250 mls/hr IV.SIG Q24H SAMMIE Rx#:[id number] Zosyn 3.375 GM Premix 50 ML @ 100 / 100 100 / 100 100 mls/hr IV.SIG Q6H SAMMIE Rx#: [id number] Other: # Incontinent Voids 3 2 Date of Last Bowel Movement 01/13/18 01/13/18 01/15/18 Narrative: GENERAL: Very pleasant 77-year-old female in no acute distress. CARDIOVASCULAR: Regular rate and rhythm. No obvious murmurs to auscultation. No chest tenderness to palpation. RESPIRATORY: No obvious rhonchi. No wheezing. Breath sounds equal bilaterally. GASTROINTESTINAL: Abdomen soft, non-tender, nondistended. BS normal. MUSCULOSKELETAL: Extremities without clubbing, cyanosis, or edema. No obvious deformities. NEUROLOGICAL: Awake, alert and oriented x4. No focal neurologic deficits. Moving both upper and lower extremities spontaneously. PSYCHIATRIC: Appropriate mood and affect. Insight and judgment normal. Results Procedures completed during hospitalization: no procedures Labs on day of discharge: Labs from last 24 hours 01/17/18 01/17/18 01/17/18 12:42 10:08 04:21 WBC RBC Hgb Hct MCV MCH MCHC RDW Plt Count MPV Neut % (Auto) Lymph % (Auto) [place] % (Auto) Eos % (Auto) Baso % (Auto) Neut # (Auto) Lymph # (Auto) [place] # (Auto) Eos # (Auto) Baso # (Auto) WBC Differential Differential Comment Sodium 145 Potassium 4.1 Chloride 112 H Carbon Dioxide 25.6 Anion Gap 7 BUN 25 H Creatinine 1.02 H Estimated GFR 53 L POC Glucose 348 H 326 H Random Glucose 232 H Calcium 9.0 01/17/18 01/16/18 01/16/18 04:21 20:16 17:32 WBC 5.3 RBC 4.02 Hgb 10.5 L Hct 32.6 L MCV 81.2 MCH 26.2 L MCHC 32.2 RDW 19.0 H Plt Count 176 MPV 8.8 Neut % (Auto) 88.6 H Lymph % (Auto) 7.6 L [place] % (Auto) 3.5 Eos % (Auto) 0.0 Baso % (Auto) 0.3 Neut # (Auto) 4.7 Lymph # (Auto) 0.4 L [place] # (Auto) 0.2 Eos # (Auto) 0.0 Baso # (Auto) 0.0 WBC Differential . Differential Comment Auto diff final Sodium Potassium Chloride Carbon Dioxide Anion Gap BUN Creatinine Estimated GFR POC Glucose 336 H 238 H Random Glucose Calcium Preliminary micro results at discharge 01/15/18 23:59 Aerobic Blood Culture - Preliminary Blood - Peripheral No growth in 1 day Anaerobic Blood Culture - Preliminary No growth in 1 day 01/15/18 23:50 Aerobic Blood Culture - Preliminary Blood - Peripheral No growth in 1 day Anaerobic Blood Culture - Preliminary No growth in 1 day - Impressions ITS Impressions Chest X-Ray 01/15/18 20:34 CONCLUSION: I don't have any pertinent priors. There is mild volume loss and mild atelectasis on the right. The volume loss may be postoperative. Left lung is clear. Normal heart size. Discharge Plan - Discharge Disposition Patient Disposition: 03 Discharge to SNF - Discharge Condition Condition: Good - Discharge Order Discharge Orders: Discharge Order (Routine); Ordered 01/18/18 Ordered By: Sophia Man - Physicians Team Primary Care Provider: Alessio Eastman Attending Provider: Alessio Eastman Other Providers: [facility],Agency
[2018-01-17] MEDS: Azithromycin Inj 500 MG in Sodium Chlor 0.9% Inj 250 ML IV.SIG SCH (23:11)
[2018-01-18] MEDS: Piperacil/Tazo 3.375 GM Premix 50 ML IV.SIG SCH ×3 (01:22→15:04)
[2018-01-18 01:28] VITALS: RESP 17; O2SAT 92
[2018-01-18] MEDS: MethylPREDNISolone Sod Succinate Inj 40 MG/ML Vial IV.PUSH SCH ×2 (01:33→09:01)
[2018-01-18 05:34] LABS: Baso % (Auto) 0.6 % (0.0-2.0); Eos % (Auto) 0.1 % (0.0-4.0); Hematocrit 31.5 % (35.0-46.0); Hemoglobin 10.3 gm/dL (11.6-15.3); Lymph # (Auto) 0.7 th/mm3 (1.0-4.8); Lymph % (Auto) 12.9 % (9.0-44.0); Mean Corpuscular HGB Conc 32.8 % (32.0-36.0); Mean Corpuscular Hemoglobin 26.2 pg (27.0-34.0); Mean Corpuscular Volume 79.8 fL (80.0-100.0); Mean Platelet Volume 8.8 fL (7.0-11.0); Mono # (Auto) 0.3 th/mm3 (0.0-0.9); Mono % (Auto) 4.8 % (0.0-8.0); Neut # (Auto) 4.6 th/mm3 (1.8-7.7); Neut % (Auto) 81.6 % (16.0-70.0); Platelet Count 194 th/mm3 (150-450); Red Blood Count 3.95 mil/mm3 (4.00-5.30); Red Cell Distribution Width 18.5 % (11.6-17.2); White Blood Count 5.7 th/mm3 (4.0-11.0)
[2018-01-18 06:02] LABS: Calcium 9.2 mg/dL (8.5-10.1); Carbon Dioxide 27.9 meq/L (21.0-32.0); Potassium 4.6 meq/L (3.5-5.1)
[2018-01-18 08:58] VITALS: BP 151/67; TEMP 98.2
[2018-01-18] MEDS: Heparin - SQ 10,000 UNITS/ML Vial SQ SCH (08:58)
[2018-01-18] MEDS: guaiFENesin 600 MG ER Tablet PO SCH (08:59)
[2018-01-18] MEDS: Pregabalin 75 MG Capsule PO SCH (08:59)
[2018-01-18] MEDS: Senna/Docusate Sodium 8.6/50 MG Tablet PO SCH (08:59)
[2018-01-18] MEDS: ARIPiprazole 2 MG Tablet PO SCH (08:59)
[2018-01-18] MEDS: LORazepam 0.5 MG Tablet PO SCH (08:59)
[2018-01-18] MEDS: Escitalopram 10 MG Tablet PO SCH (08:59)
[2018-01-18] MEDS: Magnesium Oxide 400 MG Tablet PO SCH (09:00)
[2018-01-18] MEDS: Insulin NovoLOG Aspart Correctional Sugar Inj SQ SCH ×2 (09:00→15:04)
[2018-01-18] MEDS: Budesonide-Formoterol 160/4.5 MCG 6 GM Inhaler INH SCH (09:01)
[2018-01-18] MEDS ORDERED: predniSONE 20 MG Tablet PO SCH (13:00)
[2018-01-18 13:55] VITALS: PULSE 46
[2018-01-19] MEDS ORDERED: Azithromycin 250 MG Tablet PO SCH (09:00)
[2018-01-22] MEDS ORDERED: predniSONE 20 MG Tablet PO SCH (21:00)
== END 2018-01-18 18:03 ==
LOC: NEPE 20:14 → NEDA 23:47 → N06 01-16 01:09
PROVIDERS: ADMIT Family Medicine; ATTEND Family Medicine